=== PATIENT | female | born 1950 | race Hispanic/Latino ===

== ENCOUNTER → 2024-05-26 | Day surgery (SDC) | payer MEDICARE ==
[2024-05-24 12:57] LABS: BASOPHILS % 0.4 % (0.0-1.0); EOSINOPHILS # (AUTO) 0.3 (0.0-0.4); EOSINOPHILS % 3.4 % (0.0-6.0); HEMATOCRIT 34.2 % (34.2-44.1); LYMPHOCYTES # (AUTO) 1.7 (1.0-3.2); LYMPHOCYTES % 22.4 % (18.0-39.1); MEAN CORPUSCULAR HEMOGLOBIN 23.6 pg (28-32); MEAN CORPUSCULAR HGB CONC 29.2 g/dL (31-35); MEAN CORPUSCULAR VOLUME 80.7 fL (81-99); MONOCYTES # (AUTO) 0.5 (0.2-0.8); MONOCYTES % 6.8 % (4.4-11.3); NEUTROPHILS # (AUTO) 5.2 (2.1-6.9); NEUTROPHILS % 66.5 % (38.7-80.0); PLATELET COUNT 221 x10e3/uL (140-360); RED BLOOD COUNT 4.24 x10e6/uL (3.6-5.1); RED CELL DISTRIBUTION WIDTH 16.3 % (11.7-14.4); WHITE BLOOD COUNT 7.76 x10e3/uL (4.8-10.8)
[~2024-05-26] MED LIST: ALENDRONATE SOD70 MG PO; AMLODIPINE BESY10 MG PO; AMLODIPINE BESYL5 MG PO; ARICEPT10 MG PO; ASPIRIN81 MG PO; CALTRATE 600 +1 EAC1 PO; CARVEDILOL3.125 MG PO; CLOPIDOGREL75 MG PO; DICYCLOMINE HCL20 MG PO; FARXIGA10 MG; HYOSCYAMINE SULFATE 0.5 MG/ML INJ ONE; JANUVIA50 MG PO; LANTUS 3ML100 UNITS/ SQ; LEVOTHYROXINE50 MCG PO; LIDOCAINE HCL 2% LOCAL INJ 5 ML SDV VIAL INJ ONE; LISINOPRIL20 MG PO; METOCLOPRAMIDE HCL 10 MG/2ML VIAL ONE; PHENYLEPHRINE HCL 1% 10 MG/ML VIAL ONE; PROPOFOL IV EMULSION 10 MG/ML 20 ML VIAL ONE; PROPOFOL IV EMULSION 50 ML IV ONE; PROTONIX40 MG PO; ROSUVASTATIN CAL5 MG PO; SERTRALINE HCL50 MG PO; VENTOLIN HFA18 GM INH; ZETIA10 MG PO
[2024-05-26] MEDS: LACTATED RINGER'S 1,000 ML ONE (10:18)
[2024-05-26 13:22] VITALS: TEMP 97.4
[2024-05-26 13:36] LABS: CDIFF AG QUIK CHEK NEGATIVE (NEGATIVE); CDIFF TOX QUIK CHEK NEGATIVE (NEGATIVE)
[2024-05-26 13:50] VITALS: BP 110/61; PULSE 65; RESP 18; O2SAT 99
[2024-05-27 07:50] LABS: C-REACTIVE PROTEIN 2 mg/L (0-10)
[2024-05-29 17:10] LABS: ENDOMYSIAL ANTIBODIES, IGA Negative (Negative)
[2024-05-29 22:27] LABS: IMMUNOGLOBULIN A 203 mg/dL (64-422); TISSUE TRANSGLUTAMINASE IGA AB <2 U/mL (0-3)
== END | disposition home or self-care (01) ==
LOC: OR 09:12
PROVIDERS: ATTEND Internal Medicine Gastroenterology
DX: K29.70 Gastritis, unspecified, without bleeding (principal); D12.8 Benign neoplasm of rectum; K31.7 Polyp of stomach and duodenum; K29.80 Duodenitis without bleeding; K52.9 Noninfective gastroenteritis and colitis, unspecified; K31.89 Other diseases of stomach and duodenum; K44.9 Diaphragmatic hernia without obstruction or gangrene; K21.9 Gastro-esophageal reflux disease without esophagitis; K57.30 Diverticulosis of large intestine without perforation or abscess without bleeding; K62.89 Other specified diseases of anus and rectum; K64.8 Other hemorrhoids; Z71.3 Dietary counseling and surveillance; D64.89 Other specified anemias; G47.33 Obstructive sleep apnea (adult) (pediatric); E11.22 Type 2 diabetes mellitus with diabetic chronic kidney disease; I12.9 Hypertensive chronic kidney disease with stage 1 through stage 4 chronic kidney disease, or unspecified chronic kidney disease; N18.4 Chronic kidney disease, stage 4 (severe); I25.10 Atherosclerotic heart disease of native coronary artery without angina pectoris; E78.5 Hyperlipidemia, unspecified; J44.9 Chronic obstructive pulmonary disease, unspecified; M81.0 Age-related osteoporosis without current pathological fracture; Z71.89 Other specified counseling; E03.9 Hypothyroidism, unspecified; G89.29 Other chronic pain; M54.30 Sciatica, unspecified side; M19.90 Unspecified osteoarthritis, unspecified site; N20.0 Calculus of kidney; I69.398 Other sequelae of cerebral infarction; I25.2 Old myocardial infarction; H53.8 Other visual disturbances; F41.9 Anxiety disorder, unspecified; Z88.0 Allergy status to penicillin; Z88.2 Allergy status to sulfonamides; Z88.6 Allergy status to analgesic agent; Z88.8 Allergy status to other drugs, medicaments and biological substances; Z91.041 Radiographic dye allergy status; Z01.810 Encounter for preprocedural cardiovascular examination; Z01.812 Encounter for preprocedural laboratory examination; Z79.84 Long term (current) use of oral hypoglycemic drugs; Z79.4 Long term (current) use of insulin; Z79.899 Other long term (current) drug therapy; Z79.02 Long term (current) use of antithrombotics/antiplatelets; Z79.82 Long term (current) use of aspirin; Z79.1 Long term (current) use of non-steroidal anti-inflammatories (NSAID); Z95.5 Presence of coronary angioplasty implant and graft; Z87.891 Personal history of nicotine dependence
CPT/HCPCS: 36415 ×2; 43239; 45380; 45385; 82784; 82948; 83516; 83630; 83993; 85025; 86140; 86256; 87045; 87177; 87324; 87328; 87449; 93005; J1980; J2003; J2371; J2470; J2704 ×2; J2765; J7121; 45378